=== PATIENT | male | born 1950 | race Caucasian/White ===

== ENCOUNTER → 2016-10-16 | Outpatient (CLI) | payer BC ==
[~2016-10-16] MED LIST: ESCITALOPRAM OX10 MG PO; FENOFIBRATE160 MG PO; FLOMAX0.4 MG PO; IBUPROFEN 200200 M1 PO; INVOKAMET 150-1 EAC1 PO; JANUVIA100 MG PO; LISINOPRIL20 MG PO; TESSALON PERLE100 MG PO; TRAZODONE HCL50 MG PO; VITAMINC500 PO; ZOCOR20 MG PO
== END ==
LOC: ULTRA 11:45
DX: R10.11 Right upper quadrant pain (principal); K80.20 Calculus of gallbladder without cholecystitis without obstruction; R16.1 Splenomegaly, not elsewhere classified; N13.30 Unspecified hydronephrosis

== ENCOUNTER → 2016-10-20 | Outpatient (CLI) | payer BC ==
[2016-10-19 11:56] LABS: CREATININE 1.3 mg/dL (0.6-1.3)
== END ==
LOC: CAT 08:56
PROVIDERS: Family Medicine
DX: I70.1 Atherosclerosis of renal artery (principal); N13.30 Unspecified hydronephrosis; K80.20 Calculus of gallbladder without cholecystitis without obstruction; R14.0 Abdominal distension (gaseous); R10.2 Pelvic and perineal pain

== ENCOUNTER 2016-10-30 05:14 | Observation (INO) | payer BC ==
[~2016-10-30] VITALS: Ht 172.7 cm; Wt 88.0 kg
--- NOTE | ~2016-10-30 | EKG ---
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1950 Requested By: Douglas Chandra Order Number: [id number] MD: Laurent Dee Measurements Intervals [place] Rate: 65 P: -5 GA: 169 QRS: -32 QRSD: 100 T: 8 QT: 405 QTc: 422 Interpretive Statements Sinus rhythm Abnormal R-wave progression, late transition Inferior infarct, old No previous ECG available for comparison Electronically Signed On 10-30-2016 9:29:00 [employer] by Laurent Dee [email or web address] <ELECTRONICALLY SIGNED> By: Laurent Dee MD, [facility] 10/30/1629 2 Laurent Dee MD, FACC /EPI
--- NOTE | ~2016-10-30 | H ---
[facility] [place] [address] HISTORY AND PHYSICAL Name: NOLA ABRAHAM Room #: 432-P [facility] MDagoberto#: [id number] Admission: 10/30/16 Attend Phys: Douglas Chandra MD Discharge: Date of : 54 Report #: [id number] THIS REPORT FOR: //name// CC: Rosas Chandra DATE OF SERVICE: 10/30/2016 PREOPERATIVE DIAGNOSES: Benign prostatic hypertrophy with urinary retention and bilateral hydronephrosis. HISTORY OF PRESENT ILLNESS: The patient is a 65-year-old gentleman who has longstanding history of BPH with obstruction, on Flomax therapy. The patient recently had developed some vague abdominal pain and underwent CT scanning of the abdomen and pelvis, which surprisingly revealed marked bladder distention with bilateral hydronephrosis secondary to prostatic enlargement and a median lobe prostate configuration. Due to the obstructive uropathy, the patient is undergoing cystoscopy and transurethral resection of the prostate. The patient has not yet developed acute kidney injury with normal creatinine levels. PAST MEDICAL HISTORY: Pertinent for hypertension, diabetes mellitus. PAST SURGICAL HISTORY: None. FAMILY HISTORY: Noncontributory. It is positive for coronary artery disease in his father. SOCIAL HISTORY: The patient does not use alcohol, tobacco products or recreational drugs. ALLERGIES: To SULFA. CURRENT MEDICATION REGIMEN: Lisinopril, tamsulosin, fenofibrate, Januvia, Invokana and escitalopram. IMPRESSION: Obstructive uropathy secondary to benign prostatic hypertrophy with obstruction. PLAN: Cystoscopy with transurethral resection of prostate is planned. DISCUSSION: I have reviewed the procedure with attendant risk of bleeding, [facility] [address] [place] [address] HISTORY AND PHYSICAL Name: NOLA ABRAHAM Room #: 432-P [facility] MPrimitivoR.#: [id number] Admission: 10/30/16 Attend Phys: Douglas Chandra MD Discharge: Date of : 54 Report #: [id number] infection, the side effects of retrograde ejaculation with the patient. He understands these issues and opts to proceed as discussed. <ELECTRONICALLY SIGNED> By: Douglas Chandra MD 10/31/16 1016 [id number] Douglas Chandra MD /nt
--- NOTE | ~2016-10-30 | O ---
[facility] [place] [address] OPERATIVE REPORT Name: NOLA ABRAHAM Room #: 432-P [facility] M.RPrimitivo#: [id number] Admission: 10/30/16 Attend Phys: Douglas Chandra MD Discharge: Date of : 54 Report #: [id number] THIS REPORT FOR: //name// CC: Rosas Ohara DATE OF SERVICE: 10/30/2016 PREOPERATIVE DIAGNOSES: Benign prostatic hypertrophy with obstruction and obstructive uropathy with bilateral hydronephrosis. POSTOPERATIVE DIAGNOSES: Benign prostatic hypertrophy with obstruction and obstructive uropathy with bilateral hydronephrosis. PROCEDURE: Cystoscopy and transurethral resection of prostate. ANESTHESIA: General by laryngeal mask. INDICATIONS FOR SURGERY: The patient is a 65-year-old gentleman who recently presents with some vague abdominal pain and underwent imaging of the abdomen and pelvis with CT scanning. He is noted to have a markedly distended bladder with bilateral hydronephrosis. His renal function is preserved. Given the obstructive uropathy, the patient is undergoing transurethral resection of the prostate. SUMMARY OF THE PROCEDURE AND FINDINGS: First, the patient is given a general anesthetic by laryngeal mask in the dorsal lithotomy position. He is prepped with Betadine and draped sterilely. Rectal sheath is in place to facilitate manipulation of the prostate during resection process. A 21-[place]ler panendoscope was introduced in the bladder. Cystoscopy reveals a normal anterior urethra. The prostatic urethra reveals a large median lobe of the prostate, which is protruding into the bladder lumen. The bladder is exceedingly large and hypotonic. I do not see any evidence of foreign body, tumor or stone within the bladder. The ureteral orifices are displaced cephalad and laterally due to the median lobe of the prostate. Next, a 26-Citizen [place] Ayala resectoscope sheath is introduced into the bladder. Transurethral resection of prostate is subsequently carried out, adenomatous tissue being resected to the level of the surgical capsule. The verumontanum and the external sphincter are spared from the resection process. Prostatic chips are evacuated from the bladder using an MJH evacuator and hemostasis obtained of the prostatic fossa using cauterization. Once hemostasis is completed, a 22-[place] 3-way Lott catheter is placed to close dependent drainage connected to continuous bladder irrigation with normal saline. The patient is awakened from anesthesia and transferred to the recovery room, [address] [address] OPERATIVE REPORT Name: NOLA ABRAHAM Room #: 432-P [facility] González Unger#: [id number] Admission: 10/30/16 Attend Phys: Douglas Chandra MD Discharge: Date of : 54 Report #: [id number] whereupon he arrives in satisfactory condition. Prostatic tissue is submitted for biopsy purposes. <ELECTRONICALLY SIGNED> By: Douglas Chandra MD 10/31/16 1016 [id number] Douglas Chandra MD /maría elena
--- NOTE | ~2016-10-30 | S ---
[facility] [address] [place] [address] SURGICAL PATH RPT PROCEDURE Name: KIKO ABRAHAM Room #: 432-P DEVIN Unger#: [id number] Admission: 10/30/16 Date of : 54 Discharge: 10/31/16 Report #: [id number] Path Case #: [id number] PATHOLOGY REPORT COLLECTION DATE: 10/30/2016 RECEIVED DATE: 10/30/2016 SUBMITTING PHYS: Dr. Douglas Chandra OTHER PHYS: Dr. Rosas Perry ADDENDUM REPORT (Order Date: 11/04/2016 10:34) ADDENDUM COMMENT: Properly-controlled immunohistochemical special stains are performed. Block A3: AE1/AE3: no abnormal staining identified; AFB: negative for acid fast bacilli; GMS: negative for convincing fungal organisms. The final diagnosis remains unchanged. (CLW:samantha; d/t: 11/04/2016) Professional services performed by [facility] at [facility] [address] [place] [address] Technical services performed by [facility] at [address] [place] [address], [address] [place] [address]. ELECTRONICALLY SIGNED BY: Angelia Cote M.D. DATE/TIME:11/04/2016 14:37 SPECIMEN(S) RECEIVED: A.Prostate tissue * * * * * * * * * * * * FINAL DIAGNOSIS: "Prostate tissue," transurethral resection: - Prostate with stromal and glandular nodular hyperplasia. - Focally necrotizing granulomatous prostatitis. (see comment) COMMENT: Properly controlled immunohistochemical and special stains performed. (Block A3) AE1/AE3: pending AFB: pending GMS: pending (CLW:; d/t: 11/02/16) PATHOLOGIST: Angelia Cote M.D. [facility] [address] [address] SURGICAL PATH RPT PROCEDURE Name: KIKO ABRAHAM DORETHA [id number] Admission: 10/30/16 Date of : 54 Discharge: 10/31/16 Report #: [id number] Path Case #: [id number] REPORT ELECTRONICALLY SIGNED BY: Angelia Cote M.D. DATE/TIME: 11/02/2016 15:55 * * * * * * * * * * * * GROSS PATHOLOGY: Received in formalin labeled "Kiko Abraham, prostate tissue," is a 31 gram, 8.6 x 8.6 x 2.5 cm aggregate of multiple irregular segments of nodular jackson tissue. The specimen is submitted representatively in cassette A1 through A8. (CAA; 10/30/2016) CLINICAL HISTORY: BPH with obstruction INITIAL CPT CODE(S): A; 37236, 01040, 17703, 31550 Professional services performed by [facility] at [address], [place] [address] Technical services performed by [facility] at [address] [place] [address], [address], [place] [address]. [facility] [address] [place] [address] PHONE: [phone] DIRECTOR: Oj Mcpherson M.D. * * * END OF REPORT * * *
[2016-10-30 06:30] VITALS: BP 144/79
[2016-10-30 06:57] LABS: HEMATOCRIT 39.1 % (42.0-52.0); HEMOGLOBIN 13.7 gm/dL (14.0-18.0)
[2016-10-30 07:02] LABS: CALCIUM 8.9 mg/dL (8.5-10.1); CREATININE 1.2 mg/dL (0.6-1.3); POTASSIUM 4.4 mmol/L (3.5-5.1)
[2016-10-30 07:18] LABS: ALBUMIN 3.9 g/dL (3.4-5.0); TOTAL BILIRUBIN 0.6 mg/dL (<0.1-1.0); TOTAL PROTEIN 7.4 g/dL (6.4-8.2)
[2016-10-30 10:30] VITALS: BP 136/84
[2016-10-30 11:30] VITALS: BP 132/85
[2016-10-30 12:30] VITALS: BP 131/78
[2016-10-30 15:09] VITALS: BP 121/70
[2016-10-30 20:00] VITALS: BP 136/76
[2016-10-31 04:00] VITALS: BP 114/70
[2016-10-31 08:12] VITALS: BP 133/66
[2016-10-31 10:31] VITALS: BP 133/66
== END 2016-10-31 13:30 | disposition home or self-care (01) ==
LOC: OR 05:14 → TBA 05:14 → OR 08:29 → 4E 10:26
PROVIDERS: Urology
DX: N40.1 Benign prostatic hyperplasia with lower urinary tract symptoms (principal); N13.8 Other obstructive and reflux uropathy; N13.30 Unspecified hydronephrosis; I10 Essential (primary) hypertension; E11.8 Type 2 diabetes mellitus with unspecified complications; Z88.2 Allergy status to sulfonamides; Z79.2 Long term (current) use of antibiotics; Z79.899 Other long term (current) drug therapy
CPT/HCPCS: 50010; 50101; 62110; 62900; 70005